=== PATIENT | male | born 1990 | race Two or more races ===

== ENCOUNTER 2025-03-02 00:16 | Emergency (ER) | payer MEDICAID, SELFPAY ==
[2025-03-02 00:19] VITALS: BMI 26.6
--- NOTE | 2025-03-02 00:22 | EKG_ITS ---
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
[2025-03-02 00:47] VITALS: BP 144/84; PULSE 60; RESP 16; TEMP 36.5; O2SAT 97
--- NOTE | 2025-03-02 00:53 | XR_ITS ---
Examination: Abdomen sonogram, Limited Date and time of exam: March 02, 2025 0131 hrs. Indications: Right upper abdominal pain today Technique: Real-time rodríguez scale transabdominal sonographic images of the upper abdomen obtained. Findings: Normal gallbladder. Normal common bile duct 0.2 cm Pancreatic head 1.9 cm. Liver 12.8 cm no liver lesions. Normal hepatopedal portal venous flow. Patent IVC. Impression: Negative examination
--- NOTE | 2025-03-02 00:53 | XR_ITS ---
Examination: PA chest single view Technique: Upright PA chest single view Exam date and time: 03 02 2025 0103 hrs. Indications: Chest pain today. Findings: Normal heart size. Lungs are clear. Osseous structures are intact. Impression: No active disease.
--- NOTE | 2025-03-02 00:54 | PD.EDRME ---
Rapid Medical Screening Exam E Arrival date/time: 03/02/25 00:16 34M with no significant PMH presents to ED with several days of R lower chest/RUQ pain and N/V. Possible cough. Chief Complaint: Chest Pain Vital signs: Vital Signs Temperature 97.7 F 03/02/25 00:47 Pulse Rate 60 03/02/25 00:47 Respiratory Rate 16 03/02/25 00:47 Blood Pressure 144/84 H 03/02/25 00:47 Pulse Oximetry (%) 97 03/02/25 00:47 Oxygen Delivery Method Room Air 03/02/25 00:47
[2025-03-02 02:15] LABS: Basophils # (Auto) 0.1 Thou/mm3 (0.0-0.2); Basophils % (Auto) 1 % (0-2.5); Eosinophils # (Auto) 0.4 Thou/mm3 (0.0-0.5); Eosinophils % (Auto) 4 % (0-10); Hematocrit 46.2 % (41.0-53.0); Immature Granulocytes % (Auto) 0 % (0-0); Immature Granulocytes Auto 0.04 Thou/mm3 (0.00-0.00); Lymphocytes # (Auto) 2.9 Thou/mm3 (1.0-4.8); Lymphocytes % (Auto) 26 % (10-50); Mean Corpuscular HGB Conc 34.6 g/dl (31.0-37.0); Mean Corpuscular Hemoglobin 30.8 pg (25.0-35.0); Mean Corpuscular Volume 89 fL (80-100); Monocytes # (Auto) 0.7 Thou/mm3 (0.0-0.8); Monocytes % (Auto) 6 % (0-12); Neutrophils # (Auto) 7.3 Thou/mm3 (1.8-7.7); Neutrophils % (Auto) 64 % (37-80); Nucleated Red Blood Cell % 0 /100 WBC (0); Platelet Count 291 Thou/mm3 (140-440); RDW Standard Deviation 38.5 fL (35.1-43.9); Red Blood Count 5.19 Miln/mm3 (4.50-5.90); White Blood Count 11.4 Thou/mm3 (3.8-10.6)
[2025-03-02 02:45] LABS: Alanine Aminotransferase 19 U/L (10-49); Albumin, Serum 4.9 gm/dL (3.5-5.0); Albumin/Globulin Ratio 1.8 (1.2-2.2); Alkaline Phosphatase 71 U/L (46-116); Anion Gap 5 (7-16); Aspartate Amino Transferase 17 U/L (0-34); BUN/Creatinine Ratio 15 Ratio (12-20); Bilirubin,Total 0.9 mg/dL (0.3-1.2); Blood Urea Nitrogen 15 mg/dL (9-23); Calcium 9.7 mg/dL (8.3-10.6); Calcium (Corrected) 9.7 mg/dL (8.5-10.1); Carbon Dioxide 29.1 mMol/L (20.0-31.0); Chloride 106 mMol/L (98-107); Estimated Creatinine Clearance 99.2 mL/min (>60); Globulin 2.7 gm/dL (2.3-3.5); Glucose 107 mg/dL (74-106); Lipase 34 U/L (12-53); Osmolality,Calculated 280 (275-295); Potassium 4.6 mMol/L (3.4-5.1); Sodium 140 mMol/L (136-145); Total Protein 7.6 gm/dL (5.7-8.2); Troponin I < 0.020 ng/mL (0.0-0.045); eGFR > 60 See Note
[2025-03-02 02:46] LABS: B-Type Natriuretic Peptide < 20 pg/mL (0-100)
--- NOTE | 2025-03-02 02:57 | PRELIM_ITS ---
Gallbladder ultrasound with Doppler and wave Doppler spectral analysis. March 02, 2025 0137 hours Clinical history: Right upper quadrant pain. Comparison: None. Findings: The visualized liver is normal in echogenicity without mass or ductal dilatation. No gallbladder calculus, wall thickening or pericholecystic fluid is identified. The common duct is normal in caliber at 2.1 mm. No free fluid is demonstrated on the submitted images. The imaged portions of the pancreas are within normal limits. The imaged portions of the right kidney are within normal limits. Impression: Unremarkable gallbladder sonogram. Report Electronically Signed By: Hilario Medellin 03/02/2025 2:56:14 AM [EST]
[2025-03-02] MEDS: HYDROcodone/APAP 5/325 TABLET 1 TAB PO (04:30)
[2025-03-02 07:23] VITALS: BP 161/76; PULSE 61; RESP 18; TEMP 36.6; O2SAT 98
--- NOTE | 2025-03-02 07:54 | PD.EDADDENDU ---
Emergency Room Addendum Addendum Narrative: 34 year old male presented to the ER with right upper quadrant pain
--- NOTE | 2025-03-02 08:09 | EDNOTE_ITS ---
ED Abdominal Pain RME/HPI General Chief Complaint: Chest Pain Stated complaint: CHEST PAIN RIGHT LOWER LOBE Time seen by provider: 03/02/25 07:49 Arrival date/time: 03/02/25 00:16 RME / HPI RME / HPI narrative: 03/02/25 00:16 34M with no significant PMH presents to ED with several days of R lower chest/RUQ pain and N/V. Possible cough. Tatianna Lopez Main ED Evaluation 34 year old male presented to the ER with complaints of right upper quadrant pain traveling to his right back side. He stated that the pain started suddenly, 3 days ago. History of similar symptoms that was presented to a formerly [facility] in [facility] that was diagnosed as gastritis. Patient was agitated and frustrated complaining of the wait and threatened to leave if had to wait longer. Denies symptoms of fever, chills, nausea. Denies alcohol and drug usage. Related Data Allergies Allergy/AdvReac Type Severity Reaction Status Date / Time No Known Allergies Allergy Verified 03/02/25 00:19 Review of Systems Review of Systems Systems Reviewed: All systems reviewed, normal except as documented Narrative Review of Systems: Constitutional: DENIES; Fevers Eyes: DENIES; Loss of vision Head/Ear/Nose: DENIES; Loss of hearing Throat: DENIES; Dysphagia Cardiovascular: DENIES; Chest pain, dyspnea or syncope Respiratory: DENIES; Shortness of breath Gastrointestinal: + abdominal pain (see HPI) DENIES; Rectal bleeding or melena. Genitourinary: DENIES; Dysuria (painful or difficult urination) Musculoskeletal: + back pain (see HPI) DENIES; Arthralgia (pain in a joint),; Skin: DENIES; Rash Neurological: DENIES; Loss of function or movement Psychiatric: DENIES; recent major life stressor, emotional problem, illicit drug use or abuse Endocrinology: DENIES; Weight change Hematologic/Lymphatic: DENIES; Abnormal bruising Allergic/Immunologic: DENIES; Urticaria (hives) Past Medical History Social History SMOKING STATUS: Current every day smoker ED Exam Narrative Physical exam: Physical Exam: General: The vital signs were reviewed. The patient is non-toxic, in no apparent distress and appears healthy with a patent airway, no respiratory distress and has no apparent circulatory problems. Head & Scalp: Normocephalic, atraumatic. Face: Appears normal and is without lesions, deformity. Ears: Left external pinna appears normal. Right external pinna appears normal. Eyes: The sclera is anicteric. No obvious photophobia. The Left and Right Orbit/Lid/Conjunctiva appears normal without swelling, discoloration or injection. Nose: The nose is without deformity, discharge or tenderness; Throat: Appears normal. The mucous membranes are pink and moist without exudates, redness or mass seen. The tongue appears normal. Neck: The neck is supple and no apparent mass or adenopathy. Chest: The chest wall is normal in size and symmetry and has no chest wall tenderness or crepitus. The patient displays normal ventilator effort without retractions, accessory muscle use and has adequate air movement bilaterally with no wheezes and no rales. Cardiovascular: Regular rate and rhythm; No murmurs, rubs, or gallops; Gastrointestinal: The abdomen appears normal. Right upper quadrant tenderness No obvious hernias or mass. The abdomen with vague right upper quadrant tenderness otherwise is soft and benign, non-distended, with no pain, no guarding and no rebound tenderness. Bowel sounds are present and normal sounding. No CVA tenderness. Genitourinary: Back/Spine: Normal inspection nontender questionable right CVA tenderness. Extremities/Musculoskeletal/lymphatic: The bilateral upper and lower extremities are warm. There is no evidence of arterial insufficiency. There is no evidence of venous insufficiency/edema. The patient spontaneously moves bilateral upper and lower extremities with no pain and no limitation of movement. There is no apparent, injury or trauma. Skin: The skin is warm, dry and intact. No rashes. No petechia. No purpura. No abnormal bruising. The color is appropriate with no cyanosis. Mental status/Psychiatric: Mental status is appropriate for age. The patient has no apparent delusions, visual hallucinations, no apparent audible hallucinations. The patient has no apparent suicidal thoughts/ideation and no apparent homicidal thoughts/ideation. Neurological: The patient is awake, alert, interactive, cordial, cooperative and is oriented to name and situation. The patient follows commands and answers historical question with no impairment. There is no visual disturbance apparent. The pupils are equal and reactive bilaterally with normal eye movements and no diplopia The bilateral upper and lower extremities have normal strength, normal range of motion and normal functioning. The gait, station and balance appear to be baseline with no acute change Course Quality Measures none Orders Category Date Time Status EKG (ED ONLY) *Do not use* NOW Care 03/02/25 00:22 Completed EKG (ED Only) Stat Exams 03/02/25 00:22 Draft US gall bladder Stat Exams 03/02/25 00:53 Completed XR chest 1V portable Stat Exams 03/02/25 00:53 Completed B-Type Natriuretic Peptide Stat Lab 03/02/25 02:04 Completed CBC Stat Lab 03/02/25 02:04 Completed Comprehensive Metabolic Panel Stat Lab 03/02/25 02:04 Completed Lipase Stat Lab 03/02/25 02:04 Completed Troponin I Stat Lab 03/02/25 02:04 Completed HYDROcodone*/APAP 5/325 [[place] 5/325] Med 03/02/25 04:07 Discontinued 1 tab PO X1 ONE Ketorolac Inj [Toradol Inj] Med 03/02/25 07:50 Discontinued 15 mg IVP X1 ONE Sodium Chloride 0.9% 1000 ml [Ns] 1,000 ml Med 03/02/25 07:50 Discontinued IV 150 mls/hr Sodium Chloride 0.9% 1000 ml [Ns] 1,000 ml Med 03/02/25 07:50 Discontinued IV 999 mls/hr Vital Signs Vital signs: Vital Signs Temperature 97.7 F 03/02/25 00:47 Pulse Rate 60 03/02/25 00:47 Respiratory Rate 16 03/02/25 00:47 Blood Pressure 144/84 H 03/02/25 00:47 Pulse Oximetry (%) 97 03/02/25 00:47 Oxygen Delivery Method Room Air 03/02/25 00:47 Abdominal Pain MDM MDM Narrative MDM Narrative:: Patient is a 34-year-old gentleman who has been waiting a long time prior to my shift and upon my initial evaluation he is obviously upset states he is waited all morning and night and states he went to other hospitals and they saw him a lot sooner. In the past where they worked him up for a similar problem and they told him he had gastritis. He does not recall how they came to that conclusion. He states that he did not scope him. He states he does not drink alcohol. He states he has had right upper quadrant pain for 3 days with right CVA tenderness also. There is no pain in his scrotum or testicle physical exam has tenderness on palpation of the right upper quadrant and tenderness on percussion of the right CVA area. Medical workup prior to my arrival shows a white count of 11.4 hemoglobin is 16.0 electrolytes are within normal limits. BUN is 15 creatinine of 1.0 transaminases and bilirubin are negative. BNP and troponin are negative. Urinalysis was never collected. Ultrasound of the gallbladder came back with no gallstones and normal. A chest x-ray reveals no abnormalities with normal heart no effusions no infiltrate. Patient was so upset we asked Tristian Bejarano to come down and evaluate him which she did but when he arrived and the patient has left. And then evidently he return for short period of time and left again. Patient was informed we will get a CAT scan without contrast to rule out kidney stones to look at his kidney since his gallbladder appears normal on ultrasound. He was also informed to get some fluids for hydration and some pain medicine in the IV. Despite this he appears to still be upset and left at 0835 hrs. patient refused to stay and sign any papers he just told the scribe he was going to leave while she was talking to another patient. I, Isha Abreu, am scribing for and in the presence of Dr. Campuzano. Patient data External records reviewed:: [facility] previous records (per EMR review no previous visits ) Clinical information provided by:: patient Social determinants that could affect healthcare access:: none Patient has the following chronic illnesses:: gastritis How is presenting disease/condition affected by chronic disease/condition?: uneffected by Evaluation data The following diagnostics were reviewed and interpreted by me:: lab results, radiology exam(s) and EKG tracing(s) ( EKG#1: EKG at 0046 hours. Interpreted by me: sinus bradycardia, rate 46, NO STEMI) Lab and/or radiology exams considered but not ordered:: none Interpretation Summary: Ordering Physician: Edwin Keane PA-C Date of Service: 03/02/25 Procedure(s): US gall bladder Accession Number(s): [id number] cc: Vince Bartholomew MD; NO PRIMARY/FAMILY,PHYSICIAN; Edwin Keane PA-C~ Examination: Abdomen sonogram, Limited Date and time of exam: March 02, 2025 0131 hrs. Indications: Right upper abdominal pain today Technique: Real-time rodríguez scale transabdominal sonographic images of the upper abdomen obtained. Findings: Normal gallbladder. Normal common bile duct 0.2 cm Pancreatic head 1.9 cm. Liver 12.8 cm no liver lesions. Normal hepatopedal portal venous flow. Patent IVC. Impression: Negative examination Dictated By: Vince Bartholomew MD Signed By: <Electronically signed by Vince Bartholomew MD in [place]> 03/02/25 0502 Ordering Physician: Edwin Keane PA-C Date of Service: 03/02/25 Procedure(s): XR chest 1V portable Accession Number(s): [id number] cc: Vince Bartholomew MD; NO PRIMARY/FAMILY,PHYSICIAN; Edwin Keane PA-C~ Examination: PA chest single view Technique: Upright PA chest single view Exam date and time: 03 02 2025 010 hrs. Indications: Chest pain today. Findings: Normal heart size. Lungs are clear. Osseous structures are intact. Impression: No active disease. Dictated By: Vince Bartholomew MD Signed By: <Electronically signed by Vince Bartholomew MD in [place]> 03/02/25 0458 == ==== Medications / Prescriptions Medications or Prescriptions considered but not ordered:: none Medication administrations:: Medication Administration History Discontinued Medications Hydrocodone Bitart/Acetaminophen (Hydrocodone/Apap 5/325 Tablet) 1 tab PO X1 ONE Stop: 03/02/25 04:08 Last Admin: 03/02/25 04:30 Dose: 1 tab Documented By: PINOR Sodium Chloride (Ns) 1,000 mls @ 999 mls/hr IV .Q1H1M ONE Stop: 03/02/25 08:50 Last Admin: 03/02/25 08:18 Dose: Not Given Documented By: JOSE Non-Admin Reason: Patient Refused Sodium Chloride (Ns) 1,000 mls @ 150 mls/hr IV .Q6H40M ONE Stop: 03/02/25 14:29 Last Admin: 03/02/25 08:18 Dose: Not Given Documented By: JOSE Non-Admin Reason: Patient Refused Ketorolac Tromethamine (Ketorolac Inj 30 Mg/Ml Vial) 15 mg IVP X1 ONE Stop: 03/02/25 07:51 Last Admin: 03/02/25 08:18 Dose: Not Given Documented By: JOSE Non-Admin Reason: Patient Refused see above Consultations Consultation(s) initiated? (list below): No Diagnosis Differential diagnosis abdominal pain: abdominal pain, calculus of kidney and other (gallstones) Most likely diagnosis given after review of the tests above:: Acute right flank pain Right upper quadrant abdominal pain Left against medical advice Admission Indicated Admission indicated?: not indicated Admission Request Was there a request for admission?: No Disposition Plan Disposition Plan: other (specify) (patient left AMA) Discharge Plan Plan Patient Disposition: Left Against Medical Advice Prescriptions/Referrals Referrals: No Primary/Family,Physician [Primary Care Provider] - In 1 week Problem List Clinical Impression: Acute right flank pain, Right upper quadrant abdominal pain, Left against medical advice Patient/Caregiver Discharge Instructions Print Language: Icelandic
--- NOTE | 2025-03-02 08:25 | PC.NURSE ---
Patient came up to triage to discuss care. supply chain consultant NAVNEET. Patient states that he he been in pain and waiting all night and has had no help. He states he would like to get his results and be seen at a different hospital as he was told his bed was being given to someone else who is more sick (per patient). top frame maker notified; states that she will come talk to patient
--- NOTE | 2025-03-02 09:15 | PC.NURSE ---
after he eloped came back to ED to state he does not agree with dr Campuzano by taking care of other patient and he is important too, i try to explain that emergencies are a priority but he was taking care too
== END 2025-03-02 09:18 | disposition left against medical advice (07) ==
PROVIDERS: Physician Assistant; Emergency Provider Emergency Medicine
DX: R07.9 Chest pain, unspecified (principal); R10.11 Right upper quadrant pain; Z53.29 Procedure and treatment not carried out because of patient's decision for other reasons
CPT/HCPCS: 36415; 71045; 76705; 80053; 81001; 83690; 83880; 84484; 85025; 93005; 99284; A9270